=== PATIENT | female | born 1955 | race Hispanic/Latino ===

== ENCOUNTER → 2022-12-07 | Outpatient (CLI) | payer OTHER ==
[2022-12-07 12:09] LABS: BASOPHILS % (AUTO) 0.5 % (0.0-5.0); EOSINOPHILS % (AUTO) 2.1 % (0.0-8.0); HEMATOCRIT 32.5 % (36-48); LYMPHOCYTES % (AUTO) 27.8 % (21.0-51.0); MEAN CORPUSCULAR HGB CONC 32.3 g/dL (32.0-36.0); MEAN CORPUSCULAR VOLUME 95.9 fL (79-99); MONOCYTES % (AUTO) 4.6 % (3.0-13.0); NEUTROPHILS % (AUTO) 64.3 % (40.0-77.0); PLATELET COUNT (AUTO) 137 K/uL (130-400); RED BLOOD CELL COUNT(AUTO) 3.39 MIL/uL (4.00-5.50); RED CELL DISTRIBUTION WIDTH 15.2 % (11.0-15.5); WHITE BLOOD COUNT (AUTO) 6.1 K/uL (4.8-10.8)
[2022-12-07 12:18] LABS: CREATININE 0.6 mg/dL (0.5-1.5); POTASSIUM 4.2 mmol/L (3.5-5.1)
[2022-12-07 12:26] LABS: INR 0.93 (0.85-1.15)
[2022-12-07 12:27] LABS: PARTIAL THROMBOPLASTIN TIME 26.2 SEC (26.3-35.5)
== END | disposition home or self-care (01) ==
LOC: LAB 08:46
PROVIDERS: ATTEND Internal Medicine Cardiovascular Disease
DX: I87.1 Compression of vein (principal); I10 Essential (primary) hypertension; I87.2 Venous insufficiency (chronic) (peripheral); E78.5 Hyperlipidemia, unspecified; I73.9 Peripheral vascular disease, unspecified; E11.51 Type 2 diabetes mellitus with diabetic peripheral angiopathy without gangrene; R07.89 Other chest pain; Z79.899 Other long term (current) drug therapy
CPT/HCPCS: 36415; 80048; 85025; 85610; 85730

== ENCOUNTER → 2024-07-27 | Outpatient (CLI) | payer OTHER, MEDICARE ==
--- NOTE | 2024-07-28 14:13 | HMCSR ---
APPROVED REPORT Bilateral Lower Extremity Venous Study for DVT., Venous Competence. Indications i87.1 i87.2 Vein Imaging CFV (R): Normal flow, augmentation and compression. No evidence of DVT. 7.4mm 544ms of reflux SFJ (R): Normal flow, augmentation and compression. No evidence of DVT. FEM (R): Normal flow, augmentation and compression. No evidence of DVT. POP (R): Normal flow, augmentation and compression. No evidence of DVT. DFV (R): Normal flow, augmentation and compression. No evidence of DVT. PTV (R): Normal flow, augmentation and compression. No evidence of DVT. GSV (R): Peroneals (R): Normal flow, augmentation and compression. No evidence of DVT. CFV (L): Normal flow, augmentation and compression. No evidence of DVT.6.8mm 1450ms of reflux SFJ (L): Normal flow, augmentation and compression. No evidence of DVT. FEM (L): Normal flow, augmentation and compression. No evidence of DVT. POP (L): Normal flow, augmentation and compression. No evidence of DVT. DFV (L): Normal flow, augmentation and compression. No evidence of DVT. PTV (L): Normal flow, augmentation and compression. No evidence of DVT. GSV (L): Peroneals (L): Normal flow, augmentation and compression. No evidence of DVT. Technologist Impression Deep veins of bilateral lower extremities appear patent and compressible without thrombus. Deep vein venous reflux on LCFV Venous insufficiency seen on RGSV, RSSV and LGSV RGSV Junction 4.1mm 461ms Thigh 2.8mm 167ms Knee 4.6mm 2500ms Calf 1.5mm 0.0ms RSSV Prox 1.9mm 4792ms Mid 1.5mm 0.0ms LGSV Junction 4.6mm 522ms Thigh 2.7mm 672ms Knee 1.9mm 0.0ms Calf 1.9mm 0.0ms LSSV Prox 1.1mm 0.0ms Mid 1.3mm 0.0ms Conclusion Deep vein venous reflux on LCFV Venous insufficiency seen on RGSV, RSSV and LGSV Consider formal venography with iris of clinically indicated Conclusion Deep vein venous reflux on LCFV Venous insufficiency seen on RGSV, RSSV and LGSV Consider formal venography with iris of clinically indicated
--- NOTE | 2024-07-29 12:16 | HMCSR ---
APPROVED REPORT Laterality: Bilateral Indications Claudication: , PAD VELOCITY AND DOPPLER WAVEFORM ANALYSIS CRUST SORTER (R) 189.0cm/sec, Biphasic, CRUST SORTER (L) 217.4cm/sec, Biphasic, Moderate > 50% Prof Fem Art. (R) 107.7cm/sec, Biphasic, Prof Fem Art. (L) 181.1cm/sec, Biphasic, Fem Art Prox. (R) 153.0cm/sec, Biphasic, Fem Art Prox. (L) 92.6cm/sec, Biphasic, Fem Art Mid. (R) 261.5cm/sec, Biphasic, Moderate > 50%Fem Art Mid. (L) 73.4cm/sec, Monophasic, Fem Art Dist (R) 143.6cm/sec, Biphasic, Fem Art Dist. (L) 403.1cm/sec, Monophasic, Severe > 75% Pop Art(AK) (R) 122.3cm/sec, Biphasic, Pop Art (AK) (L) 87.0cm/sec, Monophasic, Pop Art (Fossa)(R) 296.1cm/sec, Biphasic, Moderate > 50%Pop Art (Fossa) (L) 53.0cm/sec, Monophasic , Pop Art(BK) (R) 170.5cm/sec, Biphasic, Pop Art (BK) (L) 58.7cm/sec, Monophasic, SPORTS TEACHER Prox. (R) 303.7cm/sec, Biphasic, Severe > 75%SPORTS TEACHER Prox. (L) cm/sec, Occluded, SPORTS TEACHER Mid. (R) 46.5cm/sec, Monophasic, SPORTS TEACHER Mid. (L) cm/sec, Occluded, SPORTS TEACHER Dist. (R) cm/sec, Occluded, SPORTS TEACHER Dist. (L) cm/sec, Occluded, Per Art Prox. (R) 138.4cm/sec, Monophasic, Per Art Prox. (L) 51.8cm/sec, Monophasic, Per Art Mid. (R) 125.6cm/sec, Monophasic, Per Art Mid. (L) 25.5cm/sec, Monophasic, Per Art Dist. (R) 49.7cm/sec, Monophasic, Per Art Dist. (L) 25.5cm/sec, Monophasic, PRAMOD Prox. (R) 185.8cm/sec, Biphasic, Mild < 50% PRAMOD Prox. (L) 109.0cm/sec, Monophasic, PRAMOD Mid. (R) 96.1cm/sec, Biphasic PRAMOD Mid. (L) 42.1cm/sec, Monophasic, PRAMOD Dist. (R) 81.0cm/sec, Monophasic, PRAMOD Dist. (L) 56.6cm/sec, Monophasic, Technologist Impression RLE: Evidence of >50% stenosis in the mid SFA, mid Popliteal artery, and Tibioperoneal trunk with 270 cm/s ec. Evidence of >75% stenosis in the prxoimal SPORTS TEACHER, with a mid- distal occlusion. LLE: Evidence of >50% stenosis in the CRUST SORTER. Evidence of >75% stenosis in the distal SFA. Occluison of the SPORTS TEACHER. Conclusion Severe bilateral peripheral arterial disease Consider formal angiography Conclusion Severe bilateral peripheral arterial disease Consider formal angiography
== END | disposition home or self-care (01) ==
LOC: SHCH 14:23
PROVIDERS: ATTEND Internal Medicine Cardiovascular Disease
DX: I87.2 Venous insufficiency (chronic) (peripheral) (principal); I87.1 Compression of vein; I73.9 Peripheral vascular disease, unspecified
CPT/HCPCS: 93925; 93970

== ENCOUNTER 2025-01-03 07:43 | Day surgery (SDC) | payer MEDICARE, MEDICAID ==
[2025-01-01 09:34] VITALS: BP 185/101; PULSE 71; RESP 18; TEMP 98.2
[2025-01-01 10:20] LABS: IMMATURE GRANULOCYTE ABSOLUTE 0.04 K/uL (0-1); NUCLEATED RED BLOOD CELLS 0.0 % (0.0-0.19); PLATELET COUNT (AUTO) 149 K/uL (130-400); RED BLOOD CELL COUNT(AUTO) 3.58 MIL/uL (4.00-5.50); RED CELL DISTRIBUTION WIDTH 15.3 % (11.0-15.5); WHITE BLOOD COUNT (AUTO) 6.6 K/uL (4.8-10.8)
[2025-01-01 10:30] LABS: CREATININE 0.8 mg/dL (0.5-1.0); GLOMERULAR FILTR. RATE CALC 79.0 mL/min (>90); GLUCOSE,RANDOM 160.0 mg/dL (70-105); SODIUM SERUM 140.0 mmol/L (136-145); UREA NITROGEN, BLOOD 17.0 mg/dL (7-18)
[2025-01-01 10:32] LABS: INR 1.02 (0.85-1.15)
--- NOTE | 2025-01-01 14:00 | NUR ---
verified verified with turner mckinney in reference to sanju. ok for pt to continue morning of procedure. pt informed and voiced understanding
[2025-01-03] VITALS (18 sets, daily range): BP systolic 133–194; BP diastolic 48–65; PULSE 56–74; RESP 14–16; TEMP 97.6–97.9
[~2025-01-03] VITALS: Ht 147.3 cm; Wt 57.4 kg
[~2025-01-03 07:43] MED LIST: AMLO-258 PO; ATOR40TA71 PO; CARV6.25 PO; CLOP75TA32 PO; DAPA10TA PO; FERR-82 PO; GLIM2TAB30 PO; LOSA100T59 PO; METF-444 PO; PANT40TA54 PO; XARELTO PO
[2025-01-03] MEDS: 0.9%NACL 1000ML 1,000 ML IV SCH (09:41)
[2025-01-03] MEDS ORDERED: NITROGLYCERIN 50MG VIAL ONE (12:40)
[2025-01-03] MEDS ORDERED: LIDOCAINE HCL 400MG/20ML VIAL ONE (12:40)
[2025-01-03] MEDS ORDERED: HEParin-NS 1,000 UNIT/500 ML 1,000 ML IV ONE (12:40)
[2025-01-03] MEDS ORDERED: IODIXANOL 320 MG/ML 100 ML VIAL ONE (12:41)
[2025-01-03] MEDS ORDERED: MIDAZOLAM HCL 1 MG/ML 2ML VIAL ONE ×2 (13:20→13:31)
--- NOTE | 2025-01-03 14:27 | PRN ---
Procedure Note INDICATION FOR PROCEDURE: [] Symptom limiting claudication [place] four PROCEDURE: [] Conscious sedation Six Iranian sheath left common femoral artery 10 cm 45 cm six Iranian sheath from left common femoral artery up and over and placed into the right superficial femoral artery with contrast injection and pressure measurement Catheter placement to distal right popliteal artery with the use of a 0.035 in quick cross catheter with pressure measurement and contrast injection Lithotripsy angioplasty to mid right SFA with the use of a 5 mm x 60 mm lithotripsy balloon times 10 treatments up to 5.02 mm Marine stent placement to mid right superficial femoral artery with the use of a 6 mm x 60 mm Marine stent self expanding DATE OF PROCEDURE: January 03 2025 RIDES SUPERVISOR: Philipp Rowell MD [facility] PROCEDURE NOTE: [] Patient was brought to catheterization suite and prepped and draped in sterile fashion. An IV was started if not already in place and both groins were exposed for arterial access. 2% lidocaine was used for local anesthesia and then a micropuncture kit was used to gain access and wants refill on motor seen modified Seldinger technique was utilized to place a 10 cm six Iranian sheath in the left common femoral artery. Next an Omni flush catheter was then used to performed an aortogram. This was also used to direct wire from Omni flush c atheter into the right superficial femoral artery under fluoroscopic guidance. This was then advanced to the right popliteal artery and then the Omni flush catheter was removed as was the 10 cm six Iranian sheath. Next a 45 cm six Iranian sheath was then placed from the left common femoral artery up and over and parked into the right superficial femoral artery for pressure measurements were obtained and contrast injections were performed. Findings were as described below. Next a quick cross 0.035 in catheter was then placed over the Glidewire and parked into the right popliteal artery were pressure my preference and contrast injections were performed. Next a 0.014 in runthrough wire was then placed into the right anterior tibial artery under fluoroscopic guidance. Shantell catheter was removed and then a 5 mm by 60 mm lithotripsy balloon was then used to perform lithotripsy angioplasty to the mid right SFA for a total of 10 treatments at 5.02 mm. Next a 6 mm x 60 mm Marine medicated stent was then placed in the mid SFA and deployed. Follow-up contrast injection balloon as of dissection or perforation. Equipment was removed and long sheath was replaced with a short sheath followed by a run of the left lower extremity. Had an of case sheath was sewn into place and no complications occurred. The abdominal aorta is calcified and free of any significant aneurysmal changes FINDINGS: [] The abdominal aorta is calcified and free of any aneurysmal changes. Bilateral renal arteries are noted to be patent. Mesenteric vessels are noted to be patent. Bilateral common iliac external iliac and internal iliac arteries are noted to be patent. Bilateral common femoral arteries noted to be patent. Bilateral profunda femoris arteries remote to be patent. In the mid right SFA there was an 80-85% stenosis present followed by a 40-50% stenosis noted in the right popliteal artery with single-vessel runoff noted to the right foot via a patent right anterior tibial artery with a occluded right posterior tibial artery tibioperoneal trunk and peroneal artery The left profunda femoris was patent as is the left SFA. There is a stent noted in the left popliteal artery with 30% in stent restenosis with a one vessel runoff noted to the left foot via a patent left anterior tibial artery IMPRESSION: [] Successful lithotripsy angioplasty and medicated stent placement to mid right SFA PLAN: [] Continue with clopidogrel therapy at 75 mg daily in addition to Xarelto 2.5 mg twice daily. IV fluids for the next 3 hours Discharged home in approximately 630 PHILIPP ROWELL MD Jan 03, 2025 14:27
--- NOTE | 2025-01-03 14:28 | NUR ---
SHEATH REMOVED AT THIS TIME D-STAT PLACED WITH MANUAL PRESSURE HELD X 20 MINUTES. GOOD DISTAL PMS, RIGHT FEMORAL SITE ASYMPTOMATIC Addendum: 01/03/25 at 1604 by LAUREN BROWN RN RN CORRECTION ON THE TIME 1528 WAS WHEN D-STAT WAS DEPLOYED
[2025-01-03] MEDS ORDERED: 0.9%NACL 1000ML 1,000 ML IV SCH (14:30)
[2025-01-03] MEDS ORDERED: NITROGLYCERIN 0.4 MG SL TAB SL PRN (14:30)
[2025-01-03] MEDS ORDERED: DEXTROSE 50%-WATER 50 ML DISP.SYRIN IV PRN (14:30)
[2025-01-03] MEDS ORDERED: GLUCAGON 1MG KIT 1 MG ML IM PRN (14:30)
--- NOTE | 2025-01-03 18:30 | NUR ---
BOTH PT AND GRANDDAUGHTER GIVEN VERBAL AND WRITTEN DISCHARGE INSTRUCTIONS IV REMOVED SITE ASYMPTOMATIC. LEFT GROIN SOFT NON TENDER. PT TAKEN OUT VIA WHEELCHAIR DAUGHTER DRIVING
== END 2025-01-03 18:35 | disposition home or self-care (01) ==
LOC: DAH 07:43
PROVIDERS: ATTEND Internal Medicine Cardiovascular Disease
DX: E11.51 Type 2 diabetes mellitus with diabetic peripheral angiopathy without gangrene (principal); I70.213 Atherosclerosis of native arteries of extremities with intermittent claudication, bilateral legs; T82.856A Stenosis of peripheral vascular stent, initial encounter; E78.5 Hyperlipidemia, unspecified; I10 Essential (primary) hypertension; M19.90 Unspecified osteoarthritis, unspecified site; I87.2 Venous insufficiency (chronic) (peripheral); I87.1 Compression of vein; Z88.8 Allergy status to other drugs, medicaments and biological substances; Z80.0 Family history of malignant neoplasm of digestive organs; Z80.8 Family history of malignant neoplasm of other organs or systems; Z83.3 Family history of diabetes mellitus; Z82.49 Family history of ischemic heart disease and other diseases of the circulatory system; Z95.820 Peripheral vascular angioplasty status with implants and grafts; Z79.899 Other long term (current) drug therapy; Z79.84 Long term (current) use of oral hypoglycemic drugs; Y82.8 Other medical devices associated with adverse incidents; Y92.89 Other specified places as the place of occurrence of the external cause
CPT/HCPCS: 80048; 83880; 85025; 85610; 85730; 36415; 75625; 75716; 99156; 99157 ×3; 85347; 82948; C9765; C1887; C1725; C1769 ×2; C1894 ×2; C1893; C1874; J3010; J3490 ×2; J2270; J7030; J1644 ×2; J2250 ×2; Q9967; A4215; A4222; A4221; A4663; A4216; A4606; A4223 ×3; 37226; C9764